=== PATIENT | female | born 1945 | race African-American/Black ===

== ENCOUNTER 2017-08-14 15:41 | Emergency (ER) | payer BC, MEDICARE, OTHER ==
[2017-08-14 16:04] VITALS: BP 197/76
[2017-08-14] MEDS ORDERED: DIPHENHYDRAMINE HCL 50 MG CAPSULE PO ONE (17:27)
[2017-08-14] MEDS ORDERED: PREDNISONE 20 MG TABLET PO ONE (17:27)
[2017-08-14] MEDS ORDERED: COLCHICINE 0.6 MG TABLET PO ONE (17:27)
--- NOTE | 2017-08-14 17:33 | ER Document Report ---
ED General - General Chief Complaint: Hand Swelling Stated Complaint: HAND PAIN Time Seen by Provider: 08/14/17 17:19 Notes: 71-year-old female here with complaints of left wrist pain/swelling ongoing for the past 3 days. Pain is worse with movement. Pain is improved with minimizing movement and in fact she has minimal pain at rest. She has not taken anything for the pain. Earlier in the day, prior to onset of symptoms, patient did eat some shrimp. She has no prior history of gout. She denies any fevers chills numbness tingling skin redness drainage. She denies any trauma to the hand/wrist. - Related Data Allergies/Adverse Reactions: No Known Allergies Allergy (Unverified 08/14/17 15:44) Past Medical History - Social History Smoking Status: Never Smoker Chew tobacco use (# tins/day): No Frequency of alcohol use: None Drug Abuse: None Family History: Reviewed & Not Pertinent Patient has suicidal ideation: No Patient has homicidal ideation: No Renal/ Medical History: Denies: Hx Peritoneal Dialysis Review of Systems - Review of Systems Notes: See history of present illness for pertinent positive review of systems; otherwise all review of systems have been reviewed and are negative Physical Exam - Vital signs Vitals: Temp Pulse Resp BP Pulse Ox 98.9 F 80 18 197/76 H 98 08/14/17 16:00 08/14/17 16:00 08/14/17 16:00 08/14/17 16:00 08/14/17 16:00 - Notes Notes: PHYSICAL EXAMINATION: GENERAL: Well-appearing and in no acute distress. HEAD: Atraumatic, normocephalic. EYES: Pupils equal round and reactive to light, extraocular movements intact, sclera anicteric, conjunctiva are normal. ENT: nares patent, oropharynx clear without exudates. Moist mucous membranes. NECK: Normal range of motion, supple without lymphadenopathy LUNGS: CTAB and equal. No wheezes rales or rhonchi. HEART: Regular rate and rhythm without murmurs ABDOMEN: Soft, no tenderness. No guarding, no rebound EXTREMITIES: There is some mild swelling of the dorsal left hand and wrist with mild increase in pain with active wrist range of motion but minimal to no pain with passive wrist range of motion; there is no erythema induration fluctuance drainage of the overlying skin to suggest infection; neurovascular intact distally NEUROLOGICAL: Cranial nerves grossly intact. Normal sensory/motor exams. PSYCH: Normal mood, normal affect. SKIN: Warm, Dry, normal turgor, no rashes or lesions noted Course - Re-evaluation Re-evalutation: 08/14/17 17:35 MEDICAL DECISION MAKING: Concern for gout versus septic joint versus osteoarthritis Low suspicion for septic joint given minimal pain with passive range of motion and no overlying signs of infection Dose of prednisone and pain medication here and prescription prednisone and indomethacin as I suspect gouty arthritis Instructed follow-up PCP next day or few Patient understands and agrees to the plan of care - Vital Signs Vital signs: Temp Pulse Resp BP Pulse Ox 98.9 F 80 18 197/76 H 98 08/14/17 16:00 08/14/17 16:00 08/14/17 16:00 08/14/17 16:00 08/14/17 16:00 Discharge - Discharge Clinical Impression: Left wrist pain Condition: Good Disposition: HOME, SELF-CARE Additional Instructions: You likely have gout. Finish the steroids and do not skip any doses. Use the prescribed medication as needed for pain. You were seen in the emergency department at [facility]. If you were given any sedating medications, be sure not to operate heavy machinery (example - driving) and be sure you are not too sedated to walk appropriately. Please followup with your primary physician in the next few days for further management/evaluation. Please return to the emergency department for worsening of symptoms or any symptom that you deem to be concerning or life-threatening. Thank you for allowing us to be part of your care. Prescriptions: Indomethacin [Indocin 50 mg Capsule] 50 mg PO BIDP PRN #20 capsule PRN Reason: Prednisone [Deltasone 20 mg Tablet] 3 tab PO DAILY 4 Days tablet
== END 2017-08-14 17:43 | disposition home or self-care (01) ==
LOC: ER 15:41
DX: M25.532 Pain in left wrist (principal); M79.89 Other specified soft tissue disorders; M25.432 Effusion, left wrist
CPT/HCPCS: 99283; A9270 ×3; J7512

== ENCOUNTER 2018-07-29 12:44 | Emergency (ER) | payer MEDICARE ==
--- NOTE | 2018-07-29 14:46 | RADIOLOGY REPORT (SQ) ---
EXAM DESCRIPTION: KNEE RIGHT 4 VIEWS COMPLETED DATE/TIME: 07/29/2018 2:33 pm REASON FOR STUDY: right knee pain/ swelling COMPARISON: None. NUMBER OF VIEWS: Four views. TECHNIQUE: AP, lateral, and both oblique radiographic images acquired of the right knee. LIMITATIONS: None. FINDINGS: MINERALIZATION: Normal. BONES: No acute fracture or dislocation. No worrisome bone lesions. No significant osteophytes. JOINT: No effusion. No chondrocalcinosis. OTHER: No other significant finding. IMPRESSION: NEGATIVE STUDY OF RIGHT KNEE. NO RADIOGRAPHIC EVIDENCE OF ACUTE INJURY. NO EXPLANATION F OR PAIN. TECHNICAL DOCUMENTATION: JOB ID: [id number] [employer]- All Rights Reserved Reading location - IP/workstation name: [email or web address]
--- NOTE | 2018-07-29 14:48 | ER Document Report ---
HPI - HPI Time Seen by Provider: 07/29/18 13:17 Pain Level: 3 Notes: Patient is a 72-year-old female with complaints of right posterior knee pain. She denies any trauma to the area. States this started hurting about 3 days ago. Denies any recent travel, use of oral hormones, denies any history of DVTs. Patient reports she has difficulty bearing weight on it other than with a walker. - MUSCULOSKELETAL Musculoskeletal: REPORTS: Extremity pain - R Knee Past Medical History - General Information source: Patient - Social History Smoking Status: Former Smoker Frequency of alcohol use: None Drug Abuse: None Family History: Reviewed & Not Pertinent Patient has suicidal ideation: No Patient has homicidal ideation: No - Medical History Medical History: Negative Renal/ Medical History: Denies: Hx Peritoneal Dialysis Surgical Hx: Negative - Immunizations Immunizations up to date: Yes Vertical Provider Document - CONSTITUTIONAL Notes: PHYSICAL EXAMINATION: GENERAL: Well-appearing, well-nourished and in no acute distress. HEAD: Atraumatic, normocephalic. EYES: Pupils equal round extraocular movements intact, conjunctiva are normal. ENT: Nares patent NECK: Normal range of motion LUNGS: No respiratory distress Musculoskeletal: Normal range of motion, mild swelling noted to right lower extremity, no erythema or heat to the area. Tenderness to palpation from popliteal area up to the mid posterior thigh. NEUROLOGICAL: Normal speech, normal gait. PSYCH: Normal mood, normal affect. SKIN: Warm, Dry, normal turgor, no rashes or lesions noted. Course - Re-evaluation Re-evalutation: 07/29/18 14:47 Patient does have some swelling to the right lower extremity, no erythema. Patient reports pain is located to the posterior right knee with radiation of the posterior thigh. Will obtain plain films as well as a venous Doppler ultrasound. Patient declines need for pain medication. X-ray of the right knee is negative for any fracture or dislocation. Venous Doppler ultrasound without evidence of DVT or SVT. All of this was discussed with the patient. Patient will follow up with her primary care provider, I did let patient know that she may need a follow-up ultrasound in 1-2 weeks if she continues to have pain. Patient verbalizes understanding of same. - Vital Signs Vital signs: Temp Pulse Resp BP Pulse Ox 98.1 F 77 16 186/84 H 100 07/29/18 12:52 07/29/18 12:52 07/29/18 12:52 07/29/18 12:52 07/29/18 12:52 Discharge - Discharge Clinical Impression: Right knee pain Qualifiers: Chronicity: acute Qualified Code(s): M25.561 - Pain in right knee Condition: Stable Disposition: HOME, SELF-CARE Additional Instructions: Your x-rays and venous Doppler scan today were normal. With this means as there is no fracture or dislocation of any bones and at this time there is no evidence of a blood clot that is causing the pain in your right knee and leg. My suggestion is for you to take ibuprofen 600 mg every 6 hours for the next several days to help with pain and inflammation. Ice and elevate the area. Call your primary care provider to set up an appointment with them. I would like them to see you by Sunday if possible. Return to the emergency department if you experience worsening symptoms such as increased redness to the area, worsening pain or any other concerning symptom. Referrals: FOZIA VILLEGAS MD [Primary Care Provider] - Follow up as needed
[2018-07-29 16:42] VITALS: BP 185/62
--- NOTE | 2018-07-29 18:18 | XCELERA REPORT ---
[address] [place] [facility] [address] Lower Extremity Venous Evaluation Procedure: Color flow and duplex imaging of the veins of the right lower extremity as well as the left Common Femoral vein. Right Sided Venous Evaluation Normal vessel filling wall to wall, compression and augmentation as well as Colour flow down to the infrageniculate veins. Left Sided Venous Evaluation The left common femoral vein is fully compressible. Spontaneous and phasic flow is present in the left common femoral vein. Interpretation Summary No duplex evidence of DVT or obstruction in the right lower extremity nor in the left Common Femoral vein. Name: ABISAI UNGERYCE Caio Age: 72 yrs Gender: Female : 1945 Patient Status: Emergency Patient Location: ER Study Date: 07/29/2018 03:33 PM Reason For Study: right leg pain/ swelling Ordering Physician: MAE ROSSI Performed By: Dayanara Stokes : MAE ROSSI > Bridger López
== END 2018-07-29 16:42 | disposition home or self-care (01) ==
LOC: ER 12:44
DX: M25.561 Pain in right knee (principal); M79.89 Other specified soft tissue disorders; Z87.891 Personal history of nicotine dependence
CPT/HCPCS: 93971; 99283